=== PATIENT | male | born 1990 | race Hispanic/Latino ===

== ENCOUNTER 2022-01-30 07:55 | Day surgery (SDC) | payer OTHER ==
[2022-01-29 14:51] LABS: Potassium 4.1 mmol/L (3.5-5.1)
[2022-01-30] MEDS ORDERED: CEFAZOLIN SODIUM 2 GM/VIAL ONE (08:11)
[2022-01-30] MEDS ORDERED: Ringers Lactate 1,000 ML IV ONE ×2 (08:12→10:28)
[2022-01-30] MEDS ORDERED: BUPIVACAINE 0.25% PF 30 ML VIAL ONE (08:26)
[2022-01-30] MEDS ORDERED: SODIUM HYPOCHLORITE 0.25% 473 ML ONE (08:48)
[2022-01-30] MEDS ORDERED: LIDOCAINE 1% MPF 5 ML VIAL ONE (08:57)
[2022-01-30] MEDS ORDERED: propofoL 200 MG/20 ML VIAL IV ONE (08:57)
[2022-01-30] MEDS ORDERED: FENTANYL CITR 100 MCG/2 ML ONE (08:57)
[2022-01-30] MEDS ORDERED: MIDAZOLAM HCL 2 MG/2 ML INJ ONE (08:57)
[2022-01-30] MEDS ORDERED: NS 0.9% VIAL 10 ML ONE (09:08)
[2022-01-30] MEDS ORDERED: ONDANSETRON 4 MG/2 ML VIAL ONE ×2 (09:16→10:00)
[2022-01-30] MEDS ORDERED: KETOROLAC 30 MG/ML INJ ONE (09:16)
[2022-01-30] MEDS ORDERED: SODIUM HYPOCHLORITE 0.5% 473 ML ONE (09:37)
--- NOTE | 2022-01-30 09:44 | P.OP ---
Preoperative diagnosis: RIGHT inguinal abscess Postoperative diagnosis: RIGHT inguinal abscess Primary procedure: Excisional Debridement of RIGHT inguinal abscess Anesthesia: GETA + Local Estimated blood loss: <5cc Specimen: cultures Findings: multiloculated abscess, Complications: None Transferred to: Recovery Room Condition: Good
[2022-01-30] MEDS: HYDROMORPHONE HCL 1 MG/ML INJ ONE ×4 (10:00→10:25)
--- NOTE | 2022-01-30 10:06 | OP ---
Date of Procedure: 01/30/2022 Surgeon: Hadley Henley MD, Preoperative Diagnosis: Right inguinal abscess. Postoperative Diagnosis: Right inguinal abscess. Procedure Performed: Excision and debridement of right inguinal abscesses. Anesthesia: General endotracheal plus local with 0.25% Marcaine. Estimated Blood Loss: Less than 5 cc. Specimen: Culture sent both aerobic and anaerobic speciation as well as debridement tissue. Findings: Multiloculated abscess in the right groin from previous incision site approximately 5 cm x 4 cm down to 2 cm. Complications: None. Disposition: The patient was transferred to the recovery room in good condition. Procedure In Detail: After informed consent was obtained, the patient was prepped and draped in the usual sterile fashion after adequate anesthesia was achieved. I made a circumlinear incision around a previous incision site that was performed from the emergency room physician. I dissected down thro ugh circumferential tissues to ultimately digitize a large multiloculated abscess. Cultures sent for both aerobic and anaerobic speciation. I then unroofed and marsupialized the incision by extending inferiorly. The abscess material was cleared of its entirety. I then used a curette to clear out al l necrotic tissue, which there was a reasonable amount. The area was then copiously irrigated. Hemo stasis was achieved using electrocautery. The wound was then packed with 0.25% Dakin solution and Ad aptic dry. A sterile dressing placed over top. The patient tolerated the procedure well without luís dence of complication and transferred to PACU in good condition. All counts were correct at the end of the case. BE/ZULY Voice ID: [id number] Report ID: [id number]
[2022-01-30] MEDS ORDERED: HYDROCODONE/APAP 7.5/325 MG TAB ONE (10:53)
[2022-01-30 11:44] VITALS: BP 116/73; TEMP 97.6; O2SAT 100
--- NOTE | 2022-01-30 14:54 | EKG ---
Test Date: 2022-01-29 Test Time: 14:15:03 [employer] Helper: MEASUREMENT RESULTS: Intervals: Rate: 72 PA: 148 QRSD: 82 QT: 396 QTc: 433 [place]: P: 53 PA: 148 QRS: 66 T: 55 INTERPRETIVE STATEMENTS: Normal sinus rhythm Normal ECG No previous ECG available for comparison Electronically Signed On 01-30-22 14:53:02 HATCH BOSS by Sid Sheffield
== END 2022-01-30 11:35 | disposition home or self-care (01) ==
LOC: OR 07:55
PROVIDERS: ATTEND Surgery
PROC: 0JBC0ZZ Excision of Pelvic Region Subcutaneous Tissue and Fascia, Open Approach (ICD-10-PCS; principal; 2022-01-30 09:30)
DX: L02.214 Cutaneous abscess of groin (principal); I96 Gangrene, not elsewhere classified
CPT/HCPCS: 93005; 87070; 80048; 36415; 87205; 88304; 87075; 11406; J2704; J2001; J2250; J3010; A4216; J1170 ×2; J7120 ×2; J2405 ×2